=== PATIENT | female | born 1930 | race Caucasian/White ===

== ENCOUNTER 2018-08-19 13:30 | Inpatient (IN) | payer MEDICARE ==
[~2018-08-19] VITALS: Ht 162.6 cm; Wt 61.9 kg
--- NOTE | ~2018-08-19 | EKG ---
[place], [place] ELECTROCARDIOGRAM REPORT NAME: CYNDI MAYORGA UNIT #: [id number] ROOM: 508 DOCTOR: SAGAR DRAFT REPORT BIRTHDATE: [birth year] [facility] Test Date: 2018-08-19 Test Time: 14:06:26 Pat Name: CYNDI MAYORGA Department: Room: 508 Gender: F Multifocal Lens Inspector: Cleopatra Jackman : 1930 Requested By: JO METZ Order Number: [id number] Reading MD: Chin Crenshaw MD Measurements Intervals [place] Rate: 73 P: 36 LA: 181 QRS: 9 QRSD: 78 T: 14 QT: 425 QTc: 469 Interpretive Statements Sinus rhythm Marked baseline artifact makes interpretation difficult Electronically Signed On 08-20-2018 13:35:43 PST by Chin Crenshaw MD CM:EKGRPT:ELECTROCARDIOGRAM REPORT [id number] JO KEITH DRAFT REPORT JO METZ MD
--- NOTE | ~2018-08-19 | CON ---
[place], [place] REPORT OF CONSULTATION NAME: CYNDI MAYORGA UNIT #: [id number] ROOM: 508 DOCTOR: XENIA CAMPOS MD BIRTHDATE: [birth year] DOS: HISTORY OF PRESENT ILLNESS: This is an 89-year-old patient who was presented with chief complaint of blood in stool and has been admitted through the Emergency Room with further studies shows with H and H of [address] scan of the abdomen, no acute findings has been reported. The patient has been admitted to the floor and undergoing further reassessment. White blood cell was 10, H and H of 12 and 37, we confirmed. Neutrophils was 75. INR was 1.1. Comprehensive metabolic panel within normal limits. Troponin 0.1. She has had a CT scan of the neck and head because of falling episode in the toilet also under investigation. PAST MEDICAL HISTORY: Diabetes, dementia, hyperlipidemia, spinal stenosis, systemic hypertension. PAST SURGICAL HISTORY: Cholecystectomy, left hip. FAMILY HISTORY: Noncontributory. REVIEW OF SYSTEMS: HEENT: Denies double vision, blurred vision. RESPIRATORY: Denies acute shortness of breath. CARDIOVASCULAR: Denies acute chest pain. DIGESTIVE SYSTEM: No hematemesis, but complaint of blood in stool. PHYSICAL EXAMINATION: GENERAL: Frail patient. HEENT: Head normocephalic, nontraumatic. Mouth and buccal mucosa benign. NECK: Supple, no thyromegaly, no cervical lymphadenopathy. CHEST: Symmetric anatomy, equal expansion. No wheeze, no rhonchi. HEART: Normal sinus rhythm, no gallop, no murmur. ABDOMEN: Soft. No hepato-organomegaly. Bowel sounds present. No pulsatile mass. RECTAL: Small hemorrhoid at 6 o'clock position of rectum noticed the glove free of blood upon digital examination of the rectum and superficial blood around the rectum noticed. EXTREMITIES: No cyanosis, no pedal edema. NEUROLOGIC: Alert. IMPRESSION: Rectal bleed, possibly from hemorrhoid. PLAN AND DISCUSSION: We are going to go ahead and have a followup on H and H tomorrow morning to make sure that there is no definitive other pathology, i.e., silent ischemic colitis to be on board. Therefore, lactic acid is going to be ordered. If diarrhea continues further measures are going to be taking care of. Thank you very much indeed. OTHER ADJUNCTIVE DIAGNOSES: As outlined in paragraph of past medical, surgical history. A short discussion with family was undertaken. [place], [place] REPORT OF CONSULTATION NAME: CYNDI MAYORGA UNIT #: [id number] ROOM: [facility] DOCTOR: XENIA CAMPOS MD BIRTHDATE: [birth year] XENIA CAMPOS MD CM:CONSTR:REPORT OF CONSULTATION 1709 08/20/18 [id number] interface
[2018-08-19 13:33] VITALS: BP 170/56
[2018-08-19 14:33] LABS: BASO % 0.2 % (0.0-1.0); EOS # 0.1 10*3/uL (0.0-0.4); EOS % 0.6 % (1.0-4.0); HEMATOCRIT 37.3 % (37.0-47.0); HEMOGLOBIN 12.2 g/dl (12.0-16.0); LYMPH # 1.7 10*3/uL (1.3-4.4); LYMPH % 16.1 % (27.0-41.0); MEAN CELL VOLUME 92.3 fl (81.0-99.0); MEAN CORPUSCULAR HGB 30.2 pg (27.0-31.0); MEAN CORPUSCULAR HGB CONC 32.7 g/dl (33.0-37.0); MEAN PLATELET VOLUME 11.2 fl (9.6-12.3); MONO # 0.6 10*3/uL (0.1-1.0); MONO % 5.3 % (3.0-9.0); NEUT # 8.1 10*3/uL (2.3-7.9); NEUT % 77.5 % (47.0-73.0); PLATELET COUNT AUTOMATED 192 10*3/uL (130-400); RED BLOOD COUNT 4.04 10*6/uL (4.10-5.10); RED CELL DISTRI WIDTH 13.3 % (0-14.5); WHITE BLOOD COUNT 10.5 10*3/uL (4.8-10.8)
[2018-08-19 14:35] LABS: BILIRUBIN NEGATIVE (NEGATIVE); BLOOD TRACE-INTACT (NEGATIVE); CLARITY SL CLOUDY (CLEAR); COLOR YELLOW (YELLOW); GLUCOSE NEGATIVE (NEGATIVE); KETONE NEGATIVE (NEGATIVE); LEUKO ESTERASE NEGATIVE (NEGATIVE); NITRITE NEGATIVE (NEGATIVE); UROBILINOGEN 0.2 E.U./dl (0.2-1.0)
[2018-08-19 14:42] LABS: INTERNATIONAL NORM RATIO 1.1 (2.0-3.5)
[2018-08-19 14:47] LABS: BACTERIA 1+; MUCOUS 2+
[2018-08-19 14:50] LABS: ALBUMIN 3.4 gm/dl (3.1-4.5); ALKALINE PHOSPHATASE 89 U/L (45-117); BUN 16 mg/dl (7-24); CHLORIDE 107 mmol/L (98-107); CREATININE 0.98 mg/dL (0.55-1.02); POTASSIUM 4.2 mmol/L (3.5-5.1); SGOT/AST 18 IU/L (3-35); SGPT/ALT 25 U/L (12-78); SODIUM 143 mmol/L (136-145)
[2018-08-19 14:52] LABS: TROPONIN I < 0.015 ng/ml (<0.045)
[2018-08-19 15:45] VITALS: BP 157/57
[2018-08-19 16:00] VITALS: BP 170/64
[2018-08-19] MEDS ORDERED: Lopressor25 MG PO (17:54)
[2018-08-19] MEDS ORDERED: LOVASTATIN20 MG PO (17:54)
[2018-08-19] MEDS ORDERED: DONEPEZIL HCL10 MG PO (17:54)
[2018-08-19] MEDS ORDERED: CENTRUM SILVER1 EACH PO (17:55)
[2018-08-19] MEDS ORDERED: NORVASC5 MG PO (17:55)
[2018-08-19] MEDS ORDERED: VITAMIN D-32000 UNI1 PO (17:56)
[2018-08-19 20:00] VITALS: BP 135/43
[2018-08-20] VITALS: BP 144/50
[2018-08-20 06:35] LABS: BASO % 0.1 % (0.0-1.0); EOS % 0.5 % (1.0-4.0); HEMATOCRIT 31.9 % (37.0-47.0); HEMOGLOBIN 10.7 g/dl (12.0-16.0); LYMPH # 1.9 10*3/uL (1.3-4.4); MEAN CELL VOLUME 91.7 fl (81.0-99.0); MEAN CORPUSCULAR HGB 30.7 pg (27.0-31.0); MEAN CORPUSCULAR HGB CONC 33.5 g/dl (33.0-37.0); MEAN PLATELET VOLUME 11.5 fl (9.6-12.3); MONO # 0.6 10*3/uL (0.1-1.0); MONO % 7.4 % (3.0-9.0); NEUT # 5.3 10*3/uL (2.3-7.9); NEUT % 67.9 % (47.0-73.0); PLATELET COUNT AUTOMATED 168 10*3/uL (130-400); RED BLOOD COUNT 3.48 10*6/uL (4.10-5.10); RED CELL DISTRI WIDTH 13.3 % (0-14.5); WHITE BLOOD COUNT 7.9 10*3/uL (4.8-10.8)
[2018-08-20 06:53] LABS: ALBUMIN 2.9 gm/dl (3.1-4.5); ALKALINE PHOSPHATASE 82 U/L (45-117); BUN 11 mg/dl (7-24); CHLORIDE 109 mmol/L (98-107); CHOLESTEROL 122 mg/dL (<200); CREATININE 0.76 mg/dL (0.55-1.02); FREE T4 1.02 ng/dl (0.76-1.46); HDL CHOLESTEROL 49 mg/dl (40-60); LDL CHOLESTEROL 57 mg/dL (9-159); PHOSPHOROUS 3.8 mg/dL (2.5-4.9); SGOT/AST 21 IU/L (3-35); SGPT/ALT 21 U/L (12-78); SODIUM 143 mmol/L (136-145); TOTAL PROTEIN 6.1 gm/dL (6.4-8.2); TRIGLYCERIDES 81 mg/dl (<150); VLDL CHOLESTEROL 16 mg/dL (6-40)
[2018-08-20 08:00] VITALS: BP 132/68; BP 142/56
[2018-08-20 11:10] LABS: VITAMIN D, 25-HYDROXY 47.8 ng/mL (30-100)
[2018-08-20 12:00] VITALS: BP 148/76
[2018-08-20 12:19] LABS: HEMATOCRIT 34.1 % (37.0-47.0); HEMOGLOBIN 11.3 g/dl (12.0-16.0)
[2018-08-20 16:00] VITALS: BP 138/55
[2018-08-20 20:00] VITALS: BP 145/51
[2018-08-20 22:00] VITALS: BP 128/68
[2018-08-21] VITALS: BP 135/63
[2018-08-21 08:00] VITALS: BP 122/50
[2018-08-21 08:40] LABS: BASO % 0.3 % (0.0-1.0); EOS # 0.2 10*3/uL (0.0-0.4); EOS % 2.5 % (1.0-4.0); HEMATOCRIT 32.3 % (37.0-47.0); HEMOGLOBIN 10.5 g/dl (12.0-16.0); LYMPH % 31.3 % (27.0-41.0); MEAN CELL VOLUME 91.2 fl (81.0-99.0); MEAN CORPUSCULAR HGB 29.7 pg (27.0-31.0); MEAN CORPUSCULAR HGB CONC 32.5 g/dl (33.0-37.0); MEAN PLATELET VOLUME 11.5 fl (9.6-12.3); MONO # 0.5 10*3/uL (0.1-1.0); MONO % 7.4 % (3.0-9.0); NEUT # 3.8 10*3/uL (2.3-7.9); NEUT % 58.3 % (47.0-73.0); PLATELET COUNT AUTOMATED 170 10*3/uL (130-400); RED BLOOD COUNT 3.54 10*6/uL (4.10-5.10); RED CELL DISTRI WIDTH 13.2 % (0-14.5); WHITE BLOOD COUNT 6.5 10*3/uL (4.8-10.8)
[2018-08-21 09:19] VITALS: BP 172/64
[2018-08-21 12:00] VITALS: BP 126/50
[2018-08-21 16:00] VITALS: BP 126/50
[2018-08-21 20:00] VITALS: BP 120/55
[2018-08-22] VITALS: BP 136/55
[2018-08-22 08:19] LABS: BASO % 0.2 % (0.0-1.0); EOS # 0.1 10*3/uL (0.0-0.4); EOS % 2.2 % (1.0-4.0); HEMATOCRIT 30.8 % (37.0-47.0); LYMPH # 2.1 10*3/uL (1.3-4.4); LYMPH % 32.7 % (27.0-41.0); MEAN CELL VOLUME 92.5 fl (81.0-99.0); MEAN CORPUSCULAR HGB CONC 32.5 g/dl (33.0-37.0); MEAN PLATELET VOLUME 11.1 fl (9.6-12.3); MONO # 0.5 10*3/uL (0.1-1.0); MONO % 7.2 % (3.0-9.0); NEUT # 3.7 10*3/uL (2.3-7.9); NEUT % 57.5 % (47.0-73.0); PLATELET COUNT AUTOMATED 178 10*3/uL (130-400); RED BLOOD COUNT 3.33 10*6/uL (4.10-5.10); RED CELL DISTRI WIDTH 13.2 % (0-14.5); WHITE BLOOD COUNT 6.4 10*3/uL (4.8-10.8)
[2018-08-22 12:00] VITALS: BP 136/51
[2018-08-22 16:00] VITALS: BP 157/57
[2018-08-22 20:00] VITALS: BP 150/64
[2018-08-23] VITALS: BP 142/49
[2018-08-23 07:01] LABS: BASO % 0.4 % (0.0-1.0); EOS # 0.1 10*3/uL (0.0-0.4); EOS % 1.6 % (1.0-4.0); HEMOGLOBIN 10.9 g/dl (12.0-16.0); LYMPH # 2.9 10*3/uL (1.3-4.4); LYMPH % 37.3 % (27.0-41.0); MEAN CELL VOLUME 91.2 fl (81.0-99.0); MEAN CORPUSCULAR HGB 29.2 pg (27.0-31.0); MEAN CORPUSCULAR HGB CONC 32.1 g/dl (33.0-37.0); MEAN PLATELET VOLUME 11.4 fl (9.6-12.3); MONO # 0.5 10*3/uL (0.1-1.0); MONO % 6.2 % (3.0-9.0); NEUT # 4.3 10*3/uL (2.3-7.9); NEUT % 54.2 % (47.0-73.0); PLATELET COUNT AUTOMATED 195 10*3/uL (130-400); RED BLOOD COUNT 3.73 10*6/uL (4.10-5.10); RED CELL DISTRI WIDTH 13.2 % (0-14.5); WHITE BLOOD COUNT 7.9 10*3/uL (4.8-10.8)
[2018-08-23 08:00] VITALS: BP 134/76
[2018-08-23] MEDS ORDERED: PREPARATION H CR1 OZ R (11:12)
[2018-08-23] MEDS ORDERED: Nystatin Cream15 GM T (11:12)
== END 2018-08-23 12:11 | disposition other institution (70) | DRG 605 ==
LOC: ED 13:30 → 5E 15:08 → EDHOLD 15:08 → 5E 15:50
PROVIDERS: Emergency Medicine; Registered Nurse; ADMIT Emergency Medicine
DX: S00.83XA Contusion of other part of head, initial encounter (principal); K64.9 Unspecified hemorrhoids; K64.4 Residual hemorrhoidal skin tags; F03.90 Unspecified dementia, unspecified severity, without behavioral disturbance, psychotic disturbance, mood disturbance, and anxiety; I10 Essential (primary) hypertension; E78.00 Pure hypercholesterolemia, unspecified; M48.00 Spinal stenosis, site unspecified; Z96.642 Presence of left artificial hip joint; E11.65 Type 2 diabetes mellitus with hyperglycemia; E55.9 Vitamin D deficiency, unspecified; G89.29 Other chronic pain; M19.90 Unspecified osteoarthritis, unspecified site; W01.0XXA Fall on same level from slipping, tripping and stumbling without subsequent striking against object, initial encounter; S09.90XA Unspecified injury of head, initial encounter; Z90.49 Acquired absence of other specified parts of digestive tract; Z82.49 Family history of ischemic heart disease and other diseases of the circulatory system; Y93.89 Activity, other specified; Y92.091 Bathroom in other non-institutional residence as the place of occurrence of the external cause; Y99.8 Other external cause status; Z79.84 Long term (current) use of oral hypoglycemic drugs